=== PATIENT | male | born 1960 | race Caucasian/White ===

== ENCOUNTER → 2018-01-17 | Outpatient (CLI) | payer BC ==
[2018-01-17] MEDS: IOHEXOL 300 MG/ML 100ML VIAL. IV (10:51)
== END | disposition home or self-care (01) ==
LOC: KCIC CT 09:55
DX: C62.90 Malignant neoplasm of unspecified testis, unspecified whether descended or undescended (principal); J45.909 Unspecified asthma, uncomplicated; R91.1 Solitary pulmonary nodule
CPT/HCPCS: 71260; Q9967

== ENCOUNTER → 2021-10-01 | Outpatient (CLI) | payer BC ==
[~2021-10-01] MED LIST: FLUT9.9S NS; IPRA3AMP29 NEB; PROM118S5 PO; SILD20TA4 PO
--- NOTE | 2021-10-02 12:18 | KCIC ---
Exam Date: 10/01/2021 2:05 PM MRI RIGHT LOWER EXTREMITY W/O, MRI RIGHT LOWER EXTREMITY JOINT WITHOUT Indication: Reason: RIGHT ANKLE AND ACHILLES PAIN / Spl. Instructions: Pain in achilles and up back o f leg. / History: New onset of pain in right ankle with swelling on lateral side. NKI.. TECHNIQUE: Multiplanar MR images of the right ankle without intravenous contrast. FINDINGS: The anterior and posterior talofibular ligaments are intact. The anterior and posterior tibiofibular ligaments are intact. The calcaneofibular ligament is intact. The deltoid and spring ligaments are intact. Lisfranc ligament is intact. The posterior tibial tendon, flexor digitorum longus tendon, and flexor hallucis longus tendon are in tact and within normal limits. The peroneal tendons are intact. Visualized extensor tendons are int act. Achilles tendon is intact and within normal limits. Mild scattered degenerative marrow signal is noted. Bone marrow otherwise demonstrates normal signal on all sequences. There is no acute fracture. Tibiotalar and subtalar joint effusions are noted. There is soft tissue edema around the ankle. The tarsal tunnel, sinus tarsi and plantar fascia are within normal limits. IMPRESSION: Intact ligaments and tendons. No acute fracture. Tibiotalar and subtalar joint effusions noted. So ft tissue edema around the ankle is nonspecific. Exam Date: 10/01/2021 2:05 PM MRI RIGHT LOWER EXTREMITY W/O, MRI RIGHT LOWER EXTREMITY JOINT WITHOUT Indication: Reason: RIGHT ANKLE AND ACHILLES PAIN / Spl. Instructions: Pain in achilles and up back o f leg. / History: New onset of pain in right ankle with swelling on lateral side. NKI.. Technique: Multiplanar MR imaging of the right tibia and fibula was performed without intravenous con trast. The [id number] is narrowed to focus on the mid to distal tibia and fibula. Proximal tibia and fibula are excluded. FINDINGS: There is mild subcutaneous edema diffusely, nonspecific. There is periosteal edema along the anterom edial mid tibial shaft which could represent early changes of medial tibial stress syndrome. Bone ma rrow demonstrates normal signal without evidence of acute fracture. Visualized muscles demonstrate n ormal signal and bulk. IMPRESSION: Periosteal edema along the anteromedial mid tibial shaft could represent early changes of medial tibi al stress syndrome. Bone marrow otherwise demonstrates normal signal without stress fracture. Electronically signed by: Leonardo Vallejo MD (10/02/2021 12:15 PM) [id number]
== END ==
LOC: KCIC MRI 13:52
PROVIDERS: ATTEND Family Medicine
DX: M25.471 Effusion, right ankle (principal); R60.0 Localized edema; M89.9 Disorder of bone, unspecified; M76.61 Achilles tendinitis, right leg
CPT/HCPCS: 73718; 73721